=== PATIENT | male | born 2005 | race Hispanic/Latino ===

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

== ENCOUNTER 2024-12-29 08:30 | Emergency (ER) | payer SELFPAY | END 2024-12-29 08:54 | disposition home or self-care (01) | LOC: ERS 08:30 | DX: R19.7 Diarrhea, unspecified (principal); R11.2 Nausea with vomiting, unspecified | CPT/HCPCS: 99283 ==

== ENCOUNTER 2025-03-24 17:28 | Emergency (ER) | payer SELFPAY ==
[2025-03-24] MEDS ORDERED: Amoxicillin/Potassium Clav 250 MG TAB ONE (18:35)
[2025-03-24] MEDS ORDERED: Ibuprofen 800 MG TAB ONE (18:35)
[2025-03-24] MEDS ORDERED: Dexamethasone 10 MG/ML VIAL ONE (18:35)
== END 2025-03-24 18:41 | disposition home or self-care (01) ==
LOC: ERS 17:28
DX: J02.0 Streptococcal pharyngitis (principal)
CPT/HCPCS: 87430; 99283; J1100; Q0162